=== PATIENT | female | born 1990 | race African-American/Black ===

== ENCOUNTER 2017-02-07 21:09 | Emergency (ER) | payer SELFPAY ==
[2017-02-07 22:18] LABS: ABSOLUTE BASOPHILS # (AUTO) 0.1 10^3/uL (0.0-0.2); ABSOLUTE EOSINOPHILS # (AUTO) 0.1 10^3/uL (0.0-0.6); ABSOLUTE LYMPHOCYTES (AUTO) 2.2 10^3/uL (0.5-4.7); ABSOLUTE MONOCYTES (AUTO) 0.9 10^3/uL (0.1-1.4); ABSOLUTE NEUT (AUTO) 4.3 10^3/uL (1.7-8.2); BASOPHILS % (AUTO) 1.4 % (0-2); EOSINOPHILS % (AUTO) 1.6 % (0-6); HEMATOCRIT 38.4 % (36.0-47.0); HEMOGLOBIN 12.3 g/dL (12.0-15.5); HGB HCT DIFFERENCE -1.5; LYMPHOCYTES % (AUTO) 28.7 % (13-45); MEAN CORPUSCULAR HEMOGLOBIN 24.4 pg (27.0-33.4); MEAN CORPUSCULAR HGB CONC 32.1 g/dL (32.0-36.0); MEAN CORPUSCULAR VOLUME 76 fl (80-97); MONOCYTES % (AUTO) 11.4 % (3-13); RED BLOOD COUNT 5.05 10^6/uL (3.72-5.28); SEGMENTED NEUTROPHILS % (AUTO) 56.9 % (42-78); WHITE BLOOD COUNT 7.6 10^3/uL (4.0-10.5)
[2017-02-07 22:26] LABS: APPEARANCE,URINE SLIGHTLY-CLOUDY; BILIRUBIN,URINE NEGATIVE (NEGATIVE); GLUCOSE, URINE NEGATIVE (NEGATIVE); KETONES,URINE 20 mg/dL (NEGATIVE); LEUKOCYTE ESTERASE,URINE NEGATIVE (NEGATIVE); NITRITE,URINE NEGATIVE (NEGATIVE); PROTEIN,URINE NEGATIVE (NEGATIVE); UROBILINOGEN,URINE NEGATIVE mg/dL (<2.0)
[2017-02-07 22:35] LABS: ALANINE AMINOTRANSFERASE 27 U/L (9-52); ALBUMIN 4.8 g/dL (3.5-5.0); ALKALINE PHOSPHATASE 57 U/L (38-126); ANION GAP 9 (5-19); ASPARTATE AMINO TRANSFERASE 22 U/L (14-36); BILIRUBIN,DIRECT 0.4 mg/dL (0.0-0.4); BILIRUBIN,TOTAL 0.6 mg/dL (0.2-1.3); BLOOD UREA NITROGEN 7 mg/dL (7-20); CALCIUM 9.7 mg/dL (8.4-10.2); CARBON DIOXIDE 27 mmol/L (22-30); CHLORIDE 108 mmol/L (98-107); CREATININE RESULT 0.86 mg/dL (0.52-1.25); GLUCOSE 91 mg/dL (75-110); LIPASE 47.6 U/L (23-300); POTASSIUM 3.9 mmol/L (3.6-5.0); SODIUM 144.4 mmol/L (137-145); TOTAL PROTEIN 8.2 g/dL (6.3-8.2)
[2017-02-07] MEDS ORDERED: ONDANSETRON 4 MG TAB.RAPDIS PO ONE (22:47)
[2017-02-07] MEDS ORDERED: HYDROCODONE/ACETAMINOPHEN 10-325 MG TABLET PO ONE (22:47)
--- NOTE | 2017-02-07 22:52 | ER Document Report ---
ED GI/ - General Chief Complaint: Abdominal Pain Stated Complaint: STOMACH PAINS Time Seen by Provider: 02/07/17 22:38 Mode of Arrival: Ambulatory Information source: Patient TRAVEL OUTSIDE OF THE [place] IN LAST 30 DAYS: No - HPI Patient complains to provider of: Abdominal pain Notes: 02/07/17 22:49 26-year-old female with history of cholecystectomy presents with left-sided abdominal pain radiating to her left back. Located mostly in the mid left abdomen sharp. She has some mild nausea associated. Denies diarrhea dysuria or hematuria. She does report history of frequent UTIs and was diagnosed 3 weeks ago with a UTI but did not finish all of her antibiotics. Pain started about an hour prior to arrival to the emergency department but she did have similar pain about 3 weeks ago that resolved after partial treatment of her urinary tract. She is from [facility] where she was evaluated. She does have a history of holding her urine and some chronic constipation. Denies any blood in her stool. No vomiting. Denies cough cold symptoms rhinorrhea or sore throat. Denies right-sided abdominal pain. Last menstrual period 2 weeks ago. Denies vaginal discharge. 02/07/17 22:54 - Related Data Allergies/Adverse Reactions: No Known Allergies Allergy (Verified 02/07/17 21:30) Past Medical History - Social History Smoking Status: Current Every Day Smoker Family History: Reviewed & Not Pertinent Patient has suicidal ideation: No Patient has homicidal ideation: No Other: Pneumothorax apparently that required surgical repair. Renal/ Medical History: Denies: Hx Peritoneal Dialysis Past Surgical History: Reports: Hx Cholecystectomy Review of Systems - Review of Systems -: Yes All other systems reviewed and negative Physical Exam - Vital signs Vitals: Temp Pulse Resp BP Pulse Ox 98.4 F 73 18 129/73 H 98 02/07/17 21:30 02/07/17 21:30 02/07/17 21:30 02/07/17 21:30 02/07/17 21:30 Notes: Blood pressure 129/78 - Notes Notes: GENERAL: VS as per nursing doc. Well-appearing, well-nourished and in no acute distress. HEAD: Atraumatic, normocephalic. EYES: Pupils equal round and reactive to light, extraocular movements intact, sclera anicteric, no conjunctival injection or discharge. ENT: Nares patent, oropharynx clear without exudates, moist mucous membranes. NECK: Normal range of motion, supple without lymphadenopathy. LUNGS: Breath sounds clear to auscultation bilaterally and equal. No wheezes rales or rhonchi. HEART: Regular rate and rhythm without murmurs. ABDOMEN: Soft, mild generalized left sided abdominal tenderness. Left pelvis region does not appear tender. This appears contiguous with the left CVA tenderness, normoactive bowel sounds. No guarding, no rebound. No masses appreciated. No [place] sign. BACK: Mild left CVA tenderness. EXTREMITIES: Normal range of motion, no calf tenderness, no edema. NEUROLOGICAL: Cranial nerves grossly intact. Normal speech. Normal sensory and motor exams. No gross cerebellar abnormalities. PSYCH: Normal mood, normal affect. SKIN: Warm, dry, normal turgor, no lesions noted. Course - Re-evaluation Re-evalutation: 02/07/17 22:53 Discussed findings with the patient including the normal white blood cell count and essentially clean urine, normal LFTs and lipase. We will proceed with CT scan. 02/08/17 01:40 I discussed with the patient findings. She is going back to [place] and will not be here so we will see a petroleum inspector supervisor therefore further evaluation and to ensure resolution or further treatment of the cyst. I did write her a prescription for some Tylenol with codeine. She voices understanding this could cause her chronic constipation to be worse so she will use a stool softener. - Vital Signs Vital signs: Temp Pulse Resp BP Pulse Ox 98.4 F 73 18 129/73 H 98 02/07/17 21:30 02/07/17 21:30 02/07/17 21:30 02/07/17 21:30 02/07/17 21:30 - Laboratory Result Diagrams: 02/07/17 22:00 02/07/17 22:00 Laboratory results interpreted by me: 02/07/17 02/07/17 02/07/17 22:00 22:00 22:00 MCV 76 L MCH 24.4 L RDW 16.0 H Chloride 108 H Urine Ketones 20 H - Diagnostic Test Radiology reviewed: Reports reviewed - CT showed possible ovarian cyst. Confirmed by ultrasound which showed 5.1 cm partially cystic complex cyst. Consideration for hemorrhagic cyst. Discharge - Discharge Clinical Impression: Abdominal pain, Cyst of ovary, left Condition: Good Disposition: HOME, SELF-CARE Instructions: Abdominal Pain ([facility]), Oral Narcotic Medication ([facility]), Antinausea Medication ([facility]), Bulk Laxatives Additional Instructions: Ovarian Cyst Your evaluation shows the presence of an ovarian cyst. This is a ball of fluid attached to the ovary. Ovarian cysts in women of child-bearing age are usually innocent. However, the cyst may cause pain when it grows or bursts. An innocent ovarian cyst will usually go away by itself. When the cyst becomes painful, you should rest. Pain medication may be required. Some women find a hot water bottle soothing. The pain usually resolves within a few days. After menopause, an ovarian cyst may mean a tumor, and requires more aggressive evaluation -- usually surgery is recommended to remove or biopsy the cyst. A very large cyst requires evaluation at any age. Most cysts (even the innocent ones) require follow-up examination. Call the doctor or return at any time if the pain increases significantly, if you become faint, or if you experience vaginal bleeding. You have been prescribed Tylenol with codeine. This could cause your chronic constipation to be worse so you will need to use a stool softener such as Colace. Please return for worsening or concern. Start initially with ibuprofen or discomfort for discomfort. Prescriptions: Promethazine HCl [Phenergan 25 mg Tablet] 1 tab PO Q4HP PRN #10 tablet PRN Reason: Acetaminophen with Codeine [Tylenol #3 Tablet] 1 - 2 each PO Q6HP PRN #14 tablet PRN Reason: For Pain Referrals: ARIANNA CHERRY MD [ACTIVE STAFF] - Follow up in 3-5 days
--- NOTE | 2017-02-07 23:39 | RADIOLOGY REPORT (SQ) ---
EXAM DESCRIPTION: CT ABD/PELVIS NO ORAL OR IV COMPLETED DATE/TIME: 02/07/2017 11:20 pm REASON FOR STUDY: Left Abd and Flank pain COMPARISON: None. TECHNIQUE: CT scan of the abdomen and pelvis performed without intravenous or oral contrast. Images reviewed with lung, soft tissue, and bone windows. Reconstructed coronal and sagittal MPR images revi ewed. All images stored on PACS. All CT scanners at this facility use dose modulation, iterative reconstruction, and/or weight based d osing when appropriate to reduce radiation dose to as low as reasonably achievable (ALARA). [facility]: Dose Right [facility]: CareDose [facility]: Dose Right [facility]: Teradose 4D [facility]: Taptera RADIATION DOSE: Up-to-date CT equipment and radiation dose reduction techniques were employed. CTDIv ol: 5.9 mGy. DLP: 294 mGy-cm.mGy. LIMITATIONS: There is a relative paucity of mesenteric and retroperitoneal fat making delineation of abdominal and pelvic structures somewhat difficult. FINDINGS: LOWER CHEST: No significant findings. No nodules or infiltrates. NON-CONTRASTED LIVER, SPLEEN, ADRENALS: Evaluation limited by lack of IV contrast. No identified sign ificant masses. PANCREAS: No masses. No peripancreatic inflammatory changes. GALLBLADDER: Status post cholecystectomy. RIGHT KIDNEY AND URETER: No suspicious masses. Assessment limited by lack of IV contrast. No signif icant calcifications. No hydronephrosis or hydroureter. LEFT KIDNEY AND URETER: No suspicious masses. Assessment limited by lack of IV contrast. No signifi cant calcifications. No hydronephrosis or hydroureter. AORTA AND RETROPERITONEUM: No aneurysm. No retroperitoneal masses or adenopathy. BOWEL AND PERITONEAL CAVITY: No obvious masses or inflammatory changes. No free fluid. APPENDIX: Not identified PELVIS, BLADDER, AND ABDOMINAL WALL:There is some prominence of the uterus with an asymmetric cystic appearing structure in the left pelvis which could be ovarian. Pelvic ultrasound may be of value for further evaluation. BONES: No significant findings. OTHER: No other significant finding. IMPRESSION: Somewhat limited study as noted above. There is some prominence of the uterus with an a symmetric cystic appearing structure in the left pelvis which could be ovarian. Pelvic ultrasound ma y be of value for further evaluation. Other findings as noted above COMMENT: Quality ID # [id number]: Final reports with documentation of one or more dose reduction techniques (e.g., Automated exposure control, adjustment of the mA and/or kV according to patient size, use of iterative reconstruction technique) TECHNICAL DOCUMENTATION: JOB ID: [id number] [employer]- All Rights Reserved
--- NOTE | 2017-02-08 01:25 | RADIOLOGY REPORT (SQ) ---
EXAM DESCRIPTION: U/S NON OB PEL TV W/DOPPLER CLINICAL HISTORY: 26 years Female, Left Pelvic pain, Abn CT COMPARISON: 02/07/2017 TECHNIQUE: Complete transvaginal pelvic ultrasound. Color and Spectral Doppler imaging of the ovaries. FINDINGS: The uterus measures 8.6 x 5.5 x 3.9 cm. Endometrial thickness of 0.9 cm. The right ovary measures 2.8 x 2.2 x 1.8 cm. The left ovary measures 6.3 x 6.0 x 3.5 cm. Within the left ovary there is a complex septated partially cystic structure with increased through transmission and no internal color Doppler flow measuring 5.1 x 4.0 x 3.5 cm. Blood flow identified in the ovaries bilaterally. No free pelvic fluid. IMPRESSION: 1. In the left ovary there is a complex partially cystic structure measuring 5.1 cm in greatest dimension. This may represent a hemorrhagic ovarian cyst however other etiologies are not excluded. Follow-up ultrasound in 6 weeks to document resolution recommended. Alternatively MRI of the pelvis could provide definitive characterization.
[2017-02-08 01:58] VITALS: BP 121/75
== END 2017-02-08 01:57 | disposition home or self-care (01) ==
LOC: ER 21:09
DX: N83.202 Unspecified ovarian cyst, left side (principal); R10.9 Unspecified abdominal pain; Z90.49 Acquired absence of other specified parts of digestive tract; M54.9 Dorsalgia, unspecified; R11.0 Nausea; F17.200 Nicotine dependence, unspecified, uncomplicated
CPT/HCPCS: 99284; 36415; 83690; 85025; 81025; 80053; 81001; 76830; 93976; 74176; S0119